=== PATIENT | female | born 1960 | race Asian ===

== ENCOUNTER → 2023-12-07 09:11 | Outpatient (CLI) | payer MEDICARE, SELFPAY ==
[2023-12-07 10:47] LABS: Add Manual Diff / Slide Review NO; Basophils Absolute Auto 100 /uL (0-100); Basophils Percent Auto 1.3 % (0-2); Eosinophils Absolute Auto 900 /uL (0-450); Eosinophils Percent Auto 8.7 % (2-4); Hemoglobin 10.9 g/dL (12.0-16.0); Lymphocytes Absolute Auto 2900 /uL (1100-4500); Lymphocytes Percent Auto 29.2 % (25-40); Mean Corpuscular Hemoglobin 28.5 PG (26-34); Mean Corpuscular Volume 83.8 fL (80-100); Monocytes Absolute Auto 600 /uL (0-900); Monocytes Percent Auto 6.3 % (3-14); Neutrophils Absolute Auto 5400 /uL (1500-7000); Neutrophils Percent Auto 54.5 % (50-75); Platelet Count 309 X10^3/uL (150-400); Red Blood Cell Count 3.82 X10^6/uL (4.0-5.2); Red Cell Distribution Width 14.6 % (11.6-14.8); White Blood Cell Count 9.9 X10^3/uL (4.5-11.0)
[2023-12-07 11:12] LABS: Hemoglobin A1C% w Est Avg Glu 7.1 % (4.0-6.0)
[2023-12-07 11:15] LABS: Alanine Aminotransferase 17 IU/L (<35); Albumin Globulin Ratio 1.4 (1.0-2.8); Alkaline Phosphatase 75 U/L (38-126); Aspartate Aminotransferase 23 IU/L (14-36); BUN Creatinine Ratio 19.5 (6-22); Bilirubin Total 0.4 mg/dL (0.2-1.3); Blood Urea Nitrogen 17 mg/dL (7-17); Calcium 9.6 mg/dL (8.4-10.2); Carbon Dioxide 26 mmol/L (22-32); Chloride 109 mmol/L (98-107); Estimated Glomerular Filt Rate > 60 mL/min (>60); Globulin 2.9 g/dL (1.7-4.1); Glucose 108 mg/dL (80-110); HDL Cholesterol 61 mg/dL (40-60); HEMOLYSIS < 15 (0-50); Potassium 5.1 mmol/L (3.4-5.1); Sodium 140 mmol/L (137-145); Total Protein 6.9 g/dL (6.3-8.2); Triglycerides 160 mg/dL (35-150)
[2023-12-07 12:07] LABS: HIV 1 & 2 Ab/Ag 4th Gen Combo NEGATIVE (NEGATIVE); Hep C Virus Ab w/Reflex Quant NEGATIVE s/c (NEGATIVE)
[2023-12-07 12:43] LABS: Cholesterol 136 mg/dL (140-199); LDL Cholesterol Calculated 43 mg/dL (<100)
== END ==
PROVIDERS: PCP Family Medicine; Referring Provider Family Medicine; Visit Provider Family Medicine
DX: E11.8 Type 2 diabetes mellitus with unspecified complications (principal); I69.354 Hemiplegia and hemiparesis following cerebral infarction affecting left non-dominant side; E78.2 Mixed hyperlipidemia; Z86.73 Personal history of transient ischemic attack (TIA), and cerebral infarction without residual deficits
CPT/HCPCS: 36415; 80053; 80061; 83036; 85025; 86803; 87389

== ENCOUNTER → 2024-06-06 09:52 | Outpatient (CLI) | payer MEDICARE, OTHER, SELFPAY ==
[2024-06-06 10:52] LABS: Hematocrit 33.8 % (36-46); Hemoglobin 11.2 g/dL (12.0-16.0); Mean Corpuscular HGB Conc 33.2 % (30-36); Mean Corpuscular Hemoglobin 26.2 PG (26-34); Mean Corpuscular Volume 79.1 fL (80-100); Platelet Count 361 X10^3/uL (150-400); Red Blood Cell Count 4.27 X10^6/uL (4.0-5.2); Red Cell Distribution Width 16.5 % (11.6-14.8)
[2024-06-06 11:12] LABS: Hemoglobin A1C% w Est Avg Glu 7.1 % (4.0-6.0)
[2024-06-06 11:18] LABS: BUN Creatinine Ratio 19.4 (6-22); Blood Urea Nitrogen 19 mg/dL (7-17); Calcium 9.8 mg/dL (8.4-10.2); Carbon Dioxide 25 mmol/L (22-32); Chloride 106 mmol/L (98-107); Estimated Glomerular Filt Rate > 60 mL/min (>60); Glucose 123 mg/dL (80-110); HEMOLYSIS < 15 (0-50); Potassium 4.3 mmol/L (3.4-5.1); Sodium 140 mmol/L (137-145)
== END ==
LOC: LAB 09:55
PROVIDERS: PCP Family Medicine; Referring Provider Family Medicine; Visit Provider Family Medicine
DX: E11.8 Type 2 diabetes mellitus with unspecified complications (principal); D64.9 Anemia, unspecified; W19.XXXA Unspecified fall, initial encounter; Y92.009 Unspecified place in unspecified non-institutional (private) residence as the place of occurrence of the external cause
CPT/HCPCS: 36415; 80048; 83036; 85027

== ENCOUNTER → 2024-10-14 12:29 | Outpatient (CLI) | payer MEDICARE, MEDICAID, SELFPAY ==
--- NOTE | 2024-10-14 12:49 | DI.ECHO.S_ITS ---
henry can you log off so merge can delete que entry I'm Brandon +---------+ Hospital : : [address] : : [place] : : [id number] : : Phone: [phone] Echocardiogram Report + + :Name: SARAH RUELAS Study Date: 10/14/2024 Height: 65 in : :[facility] ReadingLocation: Weight: 148 lb: : Gender: Female BSA: 1.7 m2 : :: 1960 Age: 64 yrs : :Reason For Study: EVAL AORTIC VALVE : :Ordering Physician: FLORI, : :REX Performed By: Fransisco Campo : :Referring: REX RUBY : + + Interpretation Summary Normal biventricular size and systolic function. LVEF is 60 to 65%. Normal atrial sizes. There is nodular thickening of the aortic valve without any signs of aortic stenosis or regurgitation. No signs of significant pulmonary hypertension. Other findings as below. No previous echo images are available for comparison. Procedure: A two-dimensional transthoracic echocardiogram with color flow and Doppler was performed. The study quality was technically difficult. There is no prior echocardiogram noted for this patient. The patient was in normal sinus rhythm during the exam. Left Ventricle: The left ventricle is normal in size. Left ventricular wall thickness is mildly increased. There is no ventricular septal defect visualized. The ejection fraction is estimated to be 60-65%. There are no focal wall motion abnormalities. Diastolic parameters suggest a relaxation abnormality of the left ventricle, consistent with probable normal filling pressures. Right Ventricle: The right ventricle is normal in size, thickness and function. The right ventricular systolic function is normal. Atria: The left atrial size is normal. Right atrial size is normal. There is no Doppler evidence for an interatrial shunt. Mitral Valve: The mitral valve leaflets appear normal. There is no evidence of stenosis, fluttering, or prolapse. There is no mitral regurgitation noted. Aortic Valve: The aortic valve is trileaflet. The aortic valve is moderately calcified. There is normal leaflet mobility. There is discrete nodular thickening of the right coronary cusp. There is trace aortic regurgitation. Tricuspid Valve: The tricuspid valve is not well visualized. There is a trace or physiologic amount of tricuspid regurgitation. Pulmonic Valve: The pulmonic valve is not well visualized. There is no pulmonic valvular regurgitation. Great Vessels: The aortic root is normal size. The dimensions of the ascending aorta are normal. The pulmonary artery is normal size. The IVC is of normal diameter and collapses greater than 50% with a sniff. This suggests a low right atrial pressure of 3 mm Hg. Pericardium/ Pleura There is no pericardial effusion. There is no pleural effusion. MMode/2D Measurements & Calculations LVIDd: 3.1 cm LVOT diam: 2.0 cm LVIDs: 2.3 cm Ao root diam: 3.6 cm FS: 24.9 % asc Aorta Diam: 3.3 cm IVSd: 1.1 cm LVPWd: 0.98 cm LV elise. diameter/BSA (cm/m^2): 1.8 LV sys. diameter/BSA (cm/m^2): 1.3 LA A2 area: 19.6 cm2 RA long axis: 4.7 cm LA A4 area: 18.8 cm2 RA area: 12.9 cm2 LA length (vol): 5.7 cm RA vol: 29.6 ml LA vol: 54.7 ml RA : 17.0 ml/m2 LA vol index: 31.4 ml/m2 IVC diam: 1.5 cm TAPSE: 1.9 cm Doppler Measurements & Calculations Ao V2 max: 143.8 cm/sec LVOT Max Stephen: 105.6 cm/sec Ao V2 mean: 103.8 cm/sec LV V1 max P.5 mmHg Ao max P.3 mmHg LV V1 VTI: 26.0 cm Ao mean P.7 mmHg TOSHA(I,D): 2.4 cm2 Ao V2 VTI: 34.4 cm TOSHA(V,D): 2.3 cm2 sev ratio: 0.76 TOSHA indexed to BSA (cm^2/m^2): 1.4 MV E max stephen: 73.1 cm/sec TR max stephen: 203.8 cm/sec MV A max stephen: 90.2 cm/sec TR max P.6 mmHg MV E/A: 0.81 PA V2 max: 110.2 cm/sec Med Peak E' Stephen: 4.9 cm/sec PA V2 mean: 74.1 cm/sec E/E' med: 14.9 PA mean P.4 mmHg Lat Peak E' Stephen: 6.4 cm/sec PA pr(Accel): 31.0 mmHg E/E' lat: 11.4 E/e' average: 13.2 MV dec time: 0.13 sec SV(LVOT): 81.8 ml Reading Physician:11:56 AM
== END ==
LOC: ECHO 12:30
PROVIDERS: PCP Family Medicine; Referring Provider Internal Medicine Cardiovascular Disease; Visit Provider Internal Medicine Cardiovascular Disease
DX: Z09 Encounter for follow-up examination after completed treatment for conditions other than malignant neoplasm (principal); Z86.73 Personal history of transient ischemic attack (TIA), and cerebral infarction without residual deficits
CPT/HCPCS: 93306

== ENCOUNTER 2024-11-18 08:11 | Emergency (ER) | payer MEDICARE, MEDICAID, SELFPAY ==
--- NOTE | 2024-11-18 08:21 | ED.GENADULT ---
HPI - General Adult General Chief complaint: Nasal Problem Stated complaint: Having nose bleeds on and off 5 days Time Seen by Provider: 11/18/24 08:21 History of Present Illness HPI narrative: 64-year-old woman with a history of prior stroke with left-sided hemiparesis, diabetes, hyperlipidemia who has been having issues with epistaxis. Almost daily nosebleeds. On October 28 was seen by ENT and had 2 spots in the left side of her nose cauterized. She has been using saline washes and petroleum jelly to try to keep the nasal mucosa moist. She has not been checking her blood pressures at home. Did not take her morning 20 mg of lisinopril and blood pressure is moderately elevated today. She had a nosebleed this morning lasted approximately 20 minutes is now resolved with no signs of active bleeding and no obvious adherent blood clots on nasal mucosa. She does have left-sided weakness, is in a wheelchair accompanied by her son. Some minor expressive aphasia at baseline, does not appear acutely toxic Related Data Home Medications ?Medication ?Instructions ?Recorded ?Confirmed aspirin 81 mg tablet,delayed 81 mg PO DAILY 12/07/23 06/06/24 release brimonidine 0.2 % eye drops 1 drp EYE-BOTH BID 12/07/23 06/06/24 folic acid 1 mg tablet 1 mg PO DAILY 12/07/23 06/06/24 olopatadine 0.2 % eye drops (Eye 1 drp EYE-BOTH ONCE 12/07/23 06/06/24 Allergy Itch Relief) Previous Rx's ?Medication ?Instructions ?Recorded atorvastatin 80 mg tablet (Lipitor) 80 mg PO BEDTIME cholesterol #90 12/07/23 tabs cholecalciferol (vitamin D3) 125 125 mcg PO DAILY #90 tabs 12/07/23 mcg (5,000 unit) tablet gabapentin 300 mg capsule 300 mg PO BID #180 caps 12/07/23 lisinopril 10 mg tablet 10 mg PO DAILY #90 tabs 12/07/23 loratadine 10 mg tablet 10 mg PO DAILY #180 tabs 12/07/23 metformin 1,000 mg tablet 1,000 mg PO BID #180 tabs 12/07/23 alcohol swabs (Alcohol Wipes) 1 pad topical DAILY to prep skin 07/03/24 prior to testing blood sugar #100 ea blood sugar diagnostic (Blood #100 ea 07/03/24 Glucose Test strips) blood-glucose meter #1 ea 07/03/24 empty container (Sharps Container) #1 ea 07/03/24 lancets 28 gauge #100 ea 07/03/24 icosapent ethyl 1 gram capsule 2 g (2 x 1 gram) PO BID #180 caps 11/17/24 Allergies Allergy/AdvReac Type Severity Reaction Status Date / Time No Known Drug Allergies Allergy Unverified 11/18/24 08:23 Review of Systems Review of Systems Narrative: Pertinent positive and negative findings as per HPI Patient History Medical History Mixed hyperlipidemia Hemiparesis affecting left side as late effect of cerebrovascular accident History of stroke Type 2 diabetes mellitus with complication, without long-term current use of insulin Social History Smoking Status: Never smoker Exam Initial Vital Signs Initial Vital Signs: Vital Signs Temperature 97.8 F 11/18/24 08:24 Pulse Rate 71 11/18/24 08:24 Respiratory Rate 18 11/18/24 08:24 Blood Pressure 177/76 H 11/18/24 08:24 Pulse Oximetry 99 11/18/24 08:24 Oxygen Delivery Method Room Air 11/18/24 08:24 General: Chronically ill-appearing but in no acute distress. HEENT: Moist mucous membranes, normal sclera with reactive pupils, some minor blood seen in the left Nare but no signs of active bleeding or obvious clot Respiratory: Lungs are clear to auscultation, no wheezing no rales no rhonchi. Full and symmetrical air movement Cardiac: Regular rate and rhythm no murmurs no bruits Abdomen: Soft, nontender, no rebound or guarding, no flank pain Skin: Pale but otherwise Warm and dry, no rashes or significant bruising Neurologic: Left-sided weakness, she and her son agree she is at her baseline Extremities: No trauma, well perfused Psych: Cooperative, appropriate insight and affect Course Vital Signs Vital signs: Vital Signs - 8 hr 11/18/24 08:24 Temperature 97.8 F Pulse Rate 71 Respiratory Rate 18 Blood Pressure 177/76 H Pulse Oximetry 99 Oxygen Delivery Method Room Air Medical Decision Making [facility] Narrative Medical decision making narrative: 64-year-old woman with 5 days of epistaxis. Blood pressure is elevated today, last noted was in May with a primary care visit, she states she does not check blood pressures at home, does take 20 mg of lisinopril. She was seen on October 28 with cautery to some superficial vessels in the left side of the nose. She is using saline washes and still is using Vaseline to keep the tissue moist. She had an episode last night, another again this morning. No active bleeding no obvious broken vessel or adherent clot in the nose currently. In the emergency department she was given her usual dose of Lasix at 20 mg and I have actually increased that to 40 mg. I suspect that her blood pressure is contributing to the continued nosebleeds. This time there is no indication that further blood workup or imaging is required. We will ask her to check blood pressures 2-3 hours after taking her morning medications and increase her lisinopril to 40 mg daily. Continue with the nasal saline washes and the petroleum jelly to keep the tissue moist. I will ask her to follow up with her primary care physician to discuss blood pressure in 1-2 weeks. Patient is hemodynamically stable and we will be safe for discharge Discharge Plan Departure Patient Disposition: Home Clinical Impression: Epistaxis Hypertension Qualifiers: Hypertension type: primary hypertension Qualified Code(s): I10 - Essential (primary) hypertension Instructions: DI for High Blood Pressure, DI for Nosebleed Activity Restrictions/Additional Instructions: Thank you for coming in today I suspect that part of the problem with your nosebleeds is that your blood pressure has been too high recently. I am going to suggest that you increase your lisinopril to 40 mg a day, 2 pills 1st thing in the morning. You do need to be checking blood pressures. If you take your pills at breakfast I would recommend taking blood pressures around lunchtime. Please keep track of these. You will need to schedule follow up appointment with Dr. Balbuena to discuss blood pressure in 1-2 weeks. He may want to check blood work at that time to make sure that your red blood cell count is okay and your kidney function is appropriate You are doing everything right in trying to prevent the nosebleeds with the saline washes and using the Vaseline swabs to try to keep the inside of your nose moist. Please do continue to do this. In the ER today I did not see any points of bleeding or spots that I might be able to cauterize When you do have a nosebleed, it is okay to continue to use the Afrin nose spray in the nose clamps until it resolves. If you find that you are getting worse or develop any new symptoms, please feel free to return to the emergency department for further evaluation. Prescriptions: No Action (DME) blood-glucose meter Kit See Rx Instructions .ROUTE .MEDSUPPLY Qty: 1 0RF Rx Instructions: to test blood glucose once daily (DME) Blood Glucose Test Strip See Rx Instructions .ROUTE .MEDSUPPLY Qty: 100 3RF Rx Instructions: As directed to test blood sugar once daily (DME) lancets 28 gauge misc See Rx Instructions .ROUTE .MEDSUPPLY Qty: 100 3RF Rx Instructions: As directed to test blood sugar once daily alcohol swabs [Alcohol Wipes] Pads, Medicated 1 pad topical DAILY Qty: 100 3RF (DME) Sharps Container Misc See Rx Instructions .Route Qty: 1 5RF Rx Instructions: As directed to dispose of lancets after testing blood sugar icosapent ethyl 1 gram capsule 2 g PO BID Qty: 180 3RF brimonidine 0.2 % drops 1 drp EYE-BOTH BID folic acid 1 mg tablet 1 mg PO DAILY aspirin 81 mg tablet,delayed release (DR/EC) 81 mg PO DAILY olopatadine [Eye Allergy Itch Relief] 0.2 % drops 1 drp EYE-BOTH ONCE gabapentin 300 mg capsule 300 mg PO BID Qty: 180 3RF atorvastatin [Lipitor] 80 mg tablet 80 mg PO BEDTIME Qty: 90 3RF cholecalciferol (vitamin D3) 125 mcg (5,000 unit) tablet 125 mcg PO DAILY Qty: 90 3RF lisinopril 10 mg tablet 10 mg PO DAILY Qty: 90 3RF loratadine 10 mg tablet 10 mg PO DAILY Qty: 180 3RF metformin 1,000 mg tablet 1,000 mg PO BID Qty: 180 3RF Referrals: Vishnu Balbuena DO [Primary Care Provider, Family Practice] Stand Alone Forms: Patient Portal/API
[2024-11-18 08:24] VITALS: BP 177/76; PULSE 71; RESP 18; TEMP 36.6; O2SAT 99; BMI 24.6
[2024-11-18] MEDS: lisinopriL 20 MG TABLET 40 MG PO (08:47)
== END 2024-11-18 09:02 | disposition home or self-care (01) ==
PROVIDERS: Emergency Provider Emergency Medicine; PCP Family Medicine
DX: R04.0 Epistaxis (principal); I10 Essential (primary) hypertension
CPT/HCPCS: 99283

== ENCOUNTER → 2024-12-05 13:29 | Outpatient (CLI) | payer MEDICARE, MEDICAID, SELFPAY ==
[2024-12-05 14:30] LABS: Hematocrit 32.7 % (36-46); Hemoglobin 11.2 g/dL (12.0-16.0); Mean Corpuscular HGB Conc 34.4 % (30-36); Mean Corpuscular Hemoglobin 26.7 PG (26-34); Mean Corpuscular Volume 77.8 fL (80-100); Platelet Count 337 X10^3/uL (150-400)
[2024-12-05 14:46] LABS: Alanine Aminotransferase 24 IU/L (<35); Albumin 4.1 g/dL (3.5-5.0); Albumin Globulin Ratio 1.0 (1.0-2.8); Alkaline Phosphatase 122 U/L (38-126); Blood Urea Nitrogen 30 mg/dL (7-17); Calcium 9.6 mg/dL (8.4-10.2); Carbon Dioxide 22 mmol/L (22-32); Chloride 101 mmol/L (98-107); Estimated Glomerular Filt Rate 53 mL/min (>60); Globulin 4.2 g/dL (1.7-4.1); Glucose 195 mg/dL (70-99); HDL Cholesterol 55 mg/dL (40-60); HEMOLYSIS < 15 (0-50); Potassium 4.9 mmol/L (3.4-5.1); Sodium 135 mmol/L (137-145); Total Protein 8.3 g/dL (6.3-8.2)
[2024-12-05 14:53] LABS: Hemoglobin A1C% w Est Avg Glu 8.2 % (4.0-6.0)
[2024-12-05 15:13] LABS: Cholesterol 806 mg/dL (140-199); Triglycerides 1319 mg/dL (35-150)
== END ==
PROVIDERS: PCP Family Medicine; Referring Provider Family Medicine; Visit Provider Family Medicine
DX: I69.354 Hemiplegia and hemiparesis following cerebral infarction affecting left non-dominant side (principal); E11.8 Type 2 diabetes mellitus with unspecified complications; E78.2 Mixed hyperlipidemia; I10 Essential (primary) hypertension; R26.81 Unsteadiness on feet
CPT/HCPCS: 36415; 80053; 80061; 83036; 85027

== ENCOUNTER → 2025-04-14 13:10 | Outpatient (CLI) | payer MEDICARE, MEDICAID, SELFPAY ==
--- NOTE | 2025-04-14 13:15 | DIAB.MNT ---
Initial Diabetes Medical Nutrition Therapy Assessment Name: Lizette Pickard Date: 04/14/25 Time: 115-220p Dx: Type II Diabetes Provider: Esha Morfinangy presents for initial Dm visit, accompanied by son and caregiver Almas. Reports changing her diet recently to low CHO, had a dizzy spell, fell, does not check BG though does have the equipment. Reports feeling shaky and sweaty when low, though no confirmed finger sticks. Rising hgA1c this past year. Endorses increased thirst and urination over the last few months. Denies any changes to lifestyle recently, though does report reduced activity since moving here form [place] in September 2023. Started Jardiance. No SE. In [place], attended a senior center where she would walk. Not as interested in going to the one here due to cooler weather and not wanting to leave her home. Cooks [place] food. Reduced rice intake to about 1/2 cup. If still hungry will eat more veggies or sweet potato. Wants to lose wt. Has lost some since PCP visit per report. Difficult sleeping. Diet Recall: 10a-12p: eggs, 1 pancake with little syrup. OR bagel and cream cheese OR leftovers sn: half pbj on ww with tea with 1 tsp honey 5-6p: half c rice with meat and veggies 1230-1a: banana or toast or bagel. water a lot green tea with honey Coffee with 1/4c evaporated milk and 1tsp sugar Anthropometrics: Ht: 65 Wt: 150# reported 03/2025 Weight history: 160# 02/2025 PCP visit Physical Activity: No program but has stationary elliptical. Self-Monitoring Blood Glucose: None due to pain of finger sticks Date Pre Post Pre Post Pre Post HS Diabetes Medications: 1000mg Metformin BID 10mg Jardiance Pertinent Labs: hGA1c: 8.2% 11/2024 Past Medical History: (Last Updated 02/25/25 @ 15:12 by Vishnu Balbuena DO) Benign essential hypertension Gait instability Hemiparesis affecting left side as late effect of cerebrovascular accident History of stroke Hypertriglyceridemia Mixed hyperlipidemia Type 2 diabetes mellitus with complication, without long-term current use of insulin Urinary incontinence Nutrition Rx: Carbohydrates: Meal: 30-45g Snack:15-30g Nutrition Diagnosis: - Self monitoring deficit r/t does not like to finger stick aeb pt report - Nutrition and food related knowledge deficit r/t needing guidance on portions aeb pt report Intervention: This participant was very receptive. Provided appropriate educational handouts. Discussed the following topics: Completed intake assessment. Discussed barriers to care. Potential of self-monitoring, how often, and when to check. Suggested checking at different times to evaluate meals CGM sample education, benefits, limitations, precautions, access Plate Method, impact of macronutrients on blood sugar, meal timing, carbohydrate counting, pairing macronutrients and spreading out carbohydrates for better blood glucose management Recommended servings for carbohydrates at meals and snacks Heart health nutrition Brainstormed appropriate meal plan based on food preferences Role of physical activity and following provider guidelines for safety Community resource for seniors in the area Created SMART goals for patient self-care and success. Goals: Measure rice Use exercise elliptical Wear CGM Consider senior center activity Follow-up: SANDY MCKINNEY follow-up in 3 weeks Chela Webb RDN, FAYE Certified Diabetes Care and Ip/Mosaic Technician P: [phone] Thank you for this referral
== END ==
LOC: DIET 13:11
PROVIDERS: PCP Family Medicine; Referring Provider Family Medicine
DX: E11.9 Type 2 diabetes mellitus without complications (principal); Z71.3 Dietary counseling and surveillance; Z79.84 Long term (current) use of oral hypoglycemic drugs
CPT/HCPCS: 97802

== ENCOUNTER → 2025-05-08 16:00 | Outpatient (CLI) | payer MEDICARE, MEDICAID, SELFPAY ==
--- NOTE | 2025-06-04 17:18 | DIAB.MNTFU ---
Follow-up Diabetes Medical Nutrition Therapy Assessment Name: Lizette Pickard Date: 05/08/25 Time: 405-450p Dx: Type II Diabetes Provider: Esha Lizette presents for Dm visit, accompanied by son and caregiver Almas. States she would like to try another CGM sample. Liked having CGM. Not sure if she can afford OTC at this time. This RD shared OTC options with Almas via email per his request. Is willing to keep a food journal along with this sample. Will retry sample next visit. has vacation to [place] for 2 weeks coming up. PCP 06/05 Diet Recall: 10a-12p: eggs, 1 pancake with little syrup. OR bagel and cream cheese OR leftovers 5-6p: 1/2-1 c rice with meat and veggies 1230-1a: banana or toast or bagel. water a lot green tea with honey Coffee with 1/4c evaporated milk and 1tsp sugar Anthropometrics: Ht: 65 Wt: 150# reported 03/2025 Weight history: 160# 02/2025 PCP visit Physical Activity: No program but has stationary elliptical. States the elliptical remote broke, and the remote makes her feel safe with speed of machine. Reviewed potential replacements and sent this to Almas per email per his request. Self-Monitoring Blood Glucose: CGM Sample. Postprandial elevations. Excessive time above 180mg/dl and 250mg/dl. TIR: 11% very high 23% high 66% in range 0% low or very low 171mg/dl avg GMI: 7.4% std dev: 55mg/dl variance: 32.1% Diabetes Medications: 1000mg Metformin BID 10mg Jardiance Pertinent Labs: hGA1c: 8.2% 11/2024 Past Medical History: (Last Updated 02/25/25 @ 15:12 by Vishnu Balbuena DO) Benign essential hypertension Gait instability Hemiparesis affecting left side as late effect of cerebrovascular accident History of stroke Hypertriglyceridemia Mixed hyperlipidemia Type 2 diabetes mellitus with complication, without long-term current use of insulin Urinary incontinence Nutrition Rx: Carbohydrates: Meal: 30-45gSnack:15-30g Nutrition Diagnosis: - Self monitoring deficit r/t does not like to finger stick aeb pt report- in progress - Nutrition and food related knowledge deficit r/t needing guidance on portions aeb pt report - in progress Intervention: This participant was very receptive. Provided appropriate educational handouts. Discussed the following topics: CGM sample, food journal and benefits of tracking trends OTC CGM options CHO portions and ways to reduce CHO intake Potential for measuring CHO portions Physical activity goals and addressing barriers Created SMART goals for patient self-care and success. Goals: Measure rice- not met Use exercise elliptical- not met Wear CGM- met Consider senior center activity - in progress Try SF syrup- new try half bagel- new Measure rice- new Follow-up: SANDY MCKINNEY follow-up in 3-4 weeks Chela Webb RDN, FAYE Certified Diabetes Care and Wafer Production Worker P: [phone] Thank you for this referral
== END ==
LOC: DIET 16:00
PROVIDERS: PCP Family Medicine; Referring Provider Family Medicine
DX: E11.9 Type 2 diabetes mellitus without complications (principal); Z71.3 Dietary counseling and surveillance; Z79.84 Long term (current) use of oral hypoglycemic drugs
CPT/HCPCS: 97803